=== PATIENT | female | born 2000 | race Caucasian/White ===

== ENCOUNTER 2022-04-07 01:17 | Emergency (ER) | payer MEDICAID ==
[~2022-04-07] VITALS: Ht 162.6 cm; Wt 52.0 kg
[2022-04-07 03:10] LABS: BASOPHILS % 0.3 % (0.0-2.0); EOSINOPHILS % 0.3 % (0.0-5.0); HEMATOCRIT. 42.3 % (36.0-48.0); HEMOGLOBIN. 14.3 g/dL (12.0-16.0); LYMPHOCYTES % 22.7 % (20.0-50.0); MEAN CORPUSCULAR HEMOGLOBIN 30.8 pg (28.0-32.0); MEAN CORPUSCULAR VOLUME 91.3 fL (81.0-99.0); MEAN PLATELET VOLUME 7.3 fl (7.4-10.4); MONOCYTES % 7.8 % (2.0-8.0); NEUTROPHILS % 68.9 % (40.0-76.0); PLATELET 276 x1000/uL (130-400); RED BLOOD CELL COUNT 4.63 mill/uL (4.2-5.4); RED CELL DISTRIBUTION WIDTH 13.1 % (11.6-14.6)
[2022-04-07 03:19] LABS: CLARITY URINE TURBID (CLEAR); COLOR URINE DARK YELLOW (YELLOW); KETONES URINE NEGATIVE (NEGATIVE); LEUKOCYTE ESTERASE URINE 3+ (NEGATIVE); NITRITE URINE POSITIVE (NEGATIVE); OCCULT BLOOD URINE 3+ (NEGATIVE); PH URINE 6.5 (4.5-8.0); PROTEIN URINE 3+ (NEGATIVE); SPECIFIC GRAVITY URINE 1.015 (1.005-1.030)
[2022-04-07 03:22] LABS: HCG SCREEN NEGATIVE
[2022-04-07 03:24] LABS: CHLORIDE 107 mEq/L (98-107)
[2022-04-07] MEDS ORDERED: KETOROLAC 15MG/ML VIAL IV ONE (03:30)
[2022-04-07 03:47] VITALS: BP 109/84
[2022-04-07] MEDS ORDERED: CEFTRIAXONE 1 G PREMIX 50 ML IV ONE (05:30)
[2022-04-07] MEDS ORDERED: IBUP-2029 MT (06:37)
[2022-04-07] MEDS ORDERED: CEPH500C2 MT (06:37)
== END 2022-04-07 06:50 | disposition home or self-care (01) ==
LOC: ER 01:17
DX: D72.829 Elevated white blood cell count, unspecified (principal); R30.9 Painful micturition, unspecified; R31.9 Hematuria, unspecified; Z87.440 Personal history of urinary (tract) infections
CPT/HCPCS: 36415; 74176; 80053; 81003; 83690; 84703; 85025; 87077; 87086; 87186; 96365; 96375; 99284; J0696; J1885